=== PATIENT | male | born 1965 | race Two or more races ===

== ENCOUNTER 2016-12-30 23:02 | Emergency (ER) | payer SELFPAY ==
[~2016-12-30] VITALS: Ht 170.2 cm; Wt 81.6 kg
[2016-12-31 00:12] LABS: Albumin 3.9 g/dL (3.4-5.0); BUN/Creatinine Ratio 12.1; Basophils # (auto) 0 uL; Basophils % (auto) 0.5 % (0.0-2.0); Calcium 8.8 mg/dL (8.5-10.1); Eosinophils # (auto) 0.1 uL; Eosinophils % (auto) 1.8 % (0.0-7.0); Hematocrit 44.2 % (41.0-53.0); Hemoglobin 14.7 g/dL (13.5-17.5); Lymphocytes % (auto) 25.9 % (10.0-50.0); Mean Corpuscular Hemoglobin 30.1 pg (28.0-32.0); Mean Corpuscular Hgb Conc. 33.4 g/dL (32.0-36.0); Mean Corpuscular Volume 90.2 fL (80.0-100.0); Mean Platelet Volume 7.7 fL (7.4-10.4); Monocytes # (auto) 0.6 uL; Monocytes % (auto) 7.6 % (0.0-12.0); Neutrophils # (auto) 5.1 uL; Neutrophils % (auto) 64.2 % (37.0-80.0); Platelet Count (auto) 281 10^3/uL (140-450); Potassium 3.6 mmol/L (3.5-5.1); Red Cell Distribution Width 12.8 % (11.6-16.0); White Blood Cell 7.8 10^3/uL (4.4-10.8)
[2016-12-31 00:16] LABS: Bilirubin, Total 0.4 mg/dL (0.2-1.0)
[2016-12-31] MEDS ORDERED: ETOMIDATE (2MG/ML) 20ML VIAL IV ONE (04:15)
[2016-12-31 04:21] LABS: Urine Bilirubin Negative (Negative); Urine Blood Negative /uL (Negative); Urine Color Yellow (Yellow); Urine Glucose Normal (Normal); Urine Ketone Negative (Negative); Urine Nitrite Negative (Negative); Urine RBC <1 /hpf (0 - 3); Urine Squamous Epithelial Cell FEW /hpf (<5)
[2016-12-31] MEDS ORDERED: SODIUM CHLORIDE 0.9% 1,000 ML IV ONE (05:45)
[2016-12-31 07:07] VITALS: BP 129/79
== END 2016-12-31 05:38 | disposition home or self-care (01) ==
LOC: ER 23:05 → EDBD 23:05 → ER 12-31 05:38
DX: L02.415 Cutaneous abscess of right lower limb (principal)
CPT/HCPCS: 10060; 36415; 80053; 81001; 83605; 85025; 87040; 87077; 87186; 87205; 96360; 96361; 99285; J7030

== ENCOUNTER 2017-01-03 14:53 | Emergency (ER) | payer SELFPAY ==
[~2017-01-03] VITALS: Ht 160 cm; Wt 79.4 kg
[2017-01-03 16:51] VITALS: BP 133/95
== END 2017-01-03 17:49 | disposition home or self-care (01) ==
LOC: ER 14:58
DX: L02.415 Cutaneous abscess of right lower limb (principal); Z48.01 Encounter for change or removal of surgical wound dressing

== ENCOUNTER 2017-12-01 12:13 | Emergency (ER) | payer MEDICAID ==
[~2017-12-01] VITALS: Ht 160 cm; Wt 68.0 kg
[2017-12-01 12:33] VITALS: BP 134/65
[2017-12-01] MEDS ORDERED: KETOROLAC TROMETH 60MG/2ML VIAL IM ONE (13:45)
== END 2017-12-01 13:52 | disposition home or self-care (01) ==
LOC: ER 12:13
DX: S86.912A Strain of unspecified muscle(s) and tendon(s) at lower leg level, left leg, initial encounter (principal); X58.XXXA Exposure to other specified factors, initial encounter; Y93.02 Activity, running; Y92.89 Other specified places as the place of occurrence of the external cause; Y99.8 Other external cause status
CPT/HCPCS: 93971; 96372; 99284; J1885